=== PATIENT | female | born 1970 | race Caucasian/White ===

== ENCOUNTER 2016-05-08 04:16 | Observation (INO) | payer BC ==
[2016-05-02 17:54] LABS: HEMATOCRIT 39.7 % (36.0-48.0); HEMOGLOBIN 13.2 g/dL (12.0-16.0)
--- NOTE | ~2016-05-08 | OP ---
Record Of Operation [facility] [address] [place]. [address] NAME: DORA WILLINGHAM : 70 STATUS : ADM Cinda PAT#: [id number] AGE: 45 ADM/REG DATE : 05/08/16 MR#: [id number] REPORT SERV DATE: 05/08/16 DICTATED BY: STEFAN GARCIA DATE: 05/08/16 REPORT STATUS : Draft TRANSCRIBED BY: MODL DATE: 05/08/16 DATE OF PROCEDURE: 05/08/2016 PREOPERATIVE DIAGNOSES: 1. Cervical spondylosis, spinal stenosis, C5-6, C6-7. 2. Klippel-Feil deformity, C4-5. 3. Previous anterior cervical diskectomy, interbody fusion, C3-4. POSTOPERATIVE DIAGNOSES: 1. Cervical spondylosis, spinal stenosis, C5-6, C6-7. 2. Klippel-Feil deformity, C4-5. 3. Previous anterior cervical diskectomy, interbody fusion, C3-4. PROCEDURES: 1. Microscopic and navigation-assisted surgery. 2. Anterior cervical diskectomy, foraminotomy, interbody fusion with cortical cancellous allograft C5-6 and C6-7. 3. Anterior segment of spinal instrumentation with Venture plating, C5-C7. SURGEON: Stefan Garcia D.O. THREE DIMENSIONAL MAP MODELER: Marcello Rodrigues. ANESTHESIA: General. BLOOD LOSS: 15 mL. 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 The patient had a good outcome. This was done at [facility]. She has now developed neck pain, shoulder and arm pain. This has been intractable. Left shoulder has been worse than the right. The left arm is worse than the right. She has tried usual conservative care with time, medication, physical therapy, etc. It has not helped. Plain x-rays revealed spondylosis at C5-6 and C6-7. MRI shows a significant foraminal stenosis at both levels. She was brought to surgery for the above procedure having failed conservative care. Prior to surgery, risks, benefits, alternatives, and expectations explained. Consent form was signed. PROCEDURE IN DETAIL: Antibiotic prophylaxis was given. Neurophysiology monitoring leads was inserted. The patient was brought into the operative suite. General anesthetic including endotracheal intubation was administered. She was in a supine position on fluoroscopic Gustavo spinal frame. The bony prominences were carefully padded. A small bolster was placed behind the shoulder. The scalp was painted with Betadine solution. The [place] three-point fixation was attached to the skull using 60 pounds of torque in standard position. The Moise was attached to the Gustavo bed. The [employer] navigational registration frame was attached to the [place]. Isolation drapes were placed, and the neck Record Of [address] [place]. [address] NAME: DORA WILLINGHAM : 70 STATUS : ADM Cinda PAT#: [id number] AGE: 45 ADM/REG DATE : 05/08/16 MR#: [id number] REPORT SERV DATE: 05/08/16 DICTATED BY: STEFAN GARCIA DATE: 05/08/16 REPORT STATUS : Draft TRANSCRIBED BY: RUBY DATE: 05/08/16 was scrubbed with Hibiclens solution. DuraPrep was painted. Sterile drapes applied. Because of the complexity of the surgery and the need to identify correct level of surgery intraoperatively as well as desire to carry out the safest and most precise dissection, I felt intraoperative navigation was mandatory. Intraoperative CT scan with O-arm were obtained, CT information used to register the navigational system. With intraoperative CT navigation, I identified the C5-6 and C6-7 level. At the mid body of C6, a transverse 2 cm left-sided skin incision was carried out. The platysma was incised in line with the skin incision, superficial layer, deep cervical fascia was released along the anterior border of the sternocleidomastoid. Blunt dissection was carried out to the retropharyngeal space, where the longus coli muscles were subperiosteally elevated. Retractors were placed. I re-identified the correct level of surgery intraoperatively, the microscope was sterilely draped and used throughout the remainder of the procedure. Chamois distractor pins were placed in the midbody of C6 and C7 initially. The osteophytes were debrided anteriorly. The diskectomy was completed with curettes and rongeurs. As I worked from anterior to posterior, I gently widened the interbody space. Posteriorly, the uncinate processes were markedly hypertrophied, they were debrided with a cutting bur, a 3 mm and 2 mm kera bur and ultimately 1 mm Kerrison rongeur used to take down the posterior longitudinal ligament and complete the foraminotomy which was completed well past the axilla of the nerve. After the bilateral decompression, the wounds were irrigated. The width, depth, and height of the disk space was measured and a wedge-shaped cortical cancellous allograft was placed in the interbody space. Traction was released locking the graft in good position. I then moved to C5-6 and repeated the same identical steps with the same identical findings with anterior debridement, anterior diskectomy. Posteriorly, we completed the diskectomy and wide foraminotomies and an interbody fusion. Finally, a 6-hole Venture plate 40 mm in length was placed over the bodies of C5-6 and C7, properly centered in the midline using navigational assistance. All 6-holes were drilled and the locking screw was inserted, providing rigid stability. Intraoperative AP and lateral x-rays were taken showing excellent position of all implants. Good jewish of disk height and good lordosis. The wound was irrigated. The retractor was removed. The wound was completely dry. There was no oozing or bleeding. We did not feel that a drain was necessary. The platysma was closed with a running 3-0 Vicryl suture. The subcutaneous tissue was closed with 3-0 Vicryl suture. Subcuticular 4-0 PDS used for skin closure. Sterile dressings applied. The patient awakened, extubated, taken to recovery room in satisfactory condition having tolerated the procedure well. Sponge, needle, and instrument counts were correct. No intraoperative complications noted. Record Of Operation [facility] [address] [place] [address]. [id number] NAME: DORA WILLINGHAM : 70 STATUS : ADM Cinda PAT#: [id number] AGE: 45 ADM/REG DATE : 05/08/16 MR#: [id number] REPORT SERV DATE: 05/08/16 DICTATED BY: STEFAN GARCIA DATE: 05/08/16 REPORT STATUS : Draft TRANSCRIBED BY: MODJian DATE: 05/08/16 NEELIMA/RUBY Stefan Garcia D.O. / [id number] CC: Andree Robles MARCHEL D
[~2016-05-08 04:16] MED LIST: NEUR100 PO; PARAFON FORTE500 MG PO
[2016-05-09] MEDS ORDERED: METHOC500B PO (08:55)
[2016-05-09] MEDS ORDERED: PCET PO (08:57)
== END 2016-05-09 11:54 | disposition home or self-care (01) ==
LOC: SDC 04:16 → 3SO 11:09
PROVIDERS: Orthopaedic Surgery Orthopaedic Surgery of the Spine
PROC: 0RB30ZZ Excision of Cervical Vertebral Disc, Open Approach (ICD-10-PCS; 2016-05-08)
PROC: 0RG20K0 Fusion of 2 or more Cervical Vertebral Joints with Nonautologous Tissue Substitute, Anterior Approach, Anterior Column, Open Approach (ICD-10-PCS; principal; 2016-05-08 05:45)
PROC: 0RG20J0 Fusion of 2 or more Cervical Vertebral Joints with Synthetic Substitute, Anterior Approach, Anterior Column, Open Approach (ICD-10-PCS; 2016-05-08 05:45)
DX: M48.02 Spinal stenosis, cervical region (principal); M47.812 Spondylosis without myelopathy or radiculopathy, cervical region; Z88.1 Allergy status to other antibiotic agents; Z79.899 Other long term (current) drug therapy; Z90.89 Acquired absence of other organs; Z90.49 Acquired absence of other specified parts of digestive tract; Z98.1 Arthrodesis status
CPT/HCPCS: 36415; 82962; 84703; 85014; 85018; 87641; 88304; 88311; 96374; 96375; 96376; A9270-GY; C1713; C1768; G0378; J0690; J2250; J2270; J2405; J2550; J2710; J3010